=== PATIENT | female | born 1945 | race Caucasian/White ===

== ENCOUNTER 2018-11-04 15:28 | Emergency (ER) | payer OTHER, SELFPAY ==
[2018-11-04] VITALS (7 sets, daily range): BP systolic 129–150; BP diastolic 54–65; PULSE 48–58; RESP 13–18; TEMP 36.9–37; O2SAT 92–96; BMI 36.3
--- NOTE | 2018-11-04 16:02 | DI.RAD.S_ITS ---
PROCEDURE: XR CHEST 1V INDICATIONS: chest pain TECHNIQUE: One view of the chest was acquired. COMPARISON: None. FINDINGS: Surgical changes and devices: None. Lungs and pleura: An incomplete inspiratory result is noted, causing a crowded appearance to the lung markings. No focal infiltrates are seen. No pneumothorax or significant pleural effusions are seen. Mediastinum: The cardiac contours are within normal limits. The aorta demonstrates calcification and tortuosity. Bones and chest wall: Age-appropriate bony degenerative changes are seen. No suspicious bony lesions. Overlying soft tissues appear unremarkable. IMPRESSION: Limited portable chest examination, without a significant cardiopulmonary abnormality identified. Dictated by: Kirk Gomez M.D. on 11/04/2018 at 15:30 Approved by: Kirk Gomez M.D. on 11/04/2018 at 15:32
[2018-11-04 16:48] LABS: Add Manual Diff / Slide Review NO; Basophils Absolute Auto 0 /uL (0-100); Basophils Percent Auto 0.8 % (0-2); Eosinophils Absolute Auto 300 /uL (0-450); Eosinophils Percent Auto 4.9 % (2-4); Hematocrit 40.8 % (36-46); Hemoglobin 13.2 g/dL (12.0-16.0); Lymphocytes Absolute Auto 2100 /uL (1100-4500); Mean Corpuscular HGB Conc 32.4 % (30-36); Mean Corpuscular Hemoglobin 30.4 PG (26-34); Monocytes Absolute Auto 600 /uL (0-900); Monocytes Percent Auto 9.9 % (3-14); Neutrophils Absolute Auto 2700 /uL (1500-7000); Neutrophils Percent Auto 47.4 % (50-75); Platelet Count 258 X10^3/uL (150-400); Red Blood Cell Count 4.34 X10^6/uL (4.0-5.2); Red Cell Distribution Width 14.1 % (11.6-14.8); White Blood Cell Count 5.7 X10^3/uL (4.5-11.0)
[2018-11-04 17:04] LABS: Alanine Aminotransferase 25 IU/L (9-52); Albumin 4.3 g/dL (3.5-5.0); Albumin Globulin Ratio 1.3 (1.0-2.8); Alkaline Phosphatase 66 U/L (38-126); Aspartate Aminotransferase 27 IU/L (14-36); Bilirubin Total 0.3 mg/dL (0.2-1.3); Blood Urea Nitrogen 12 mg/dL (7-17); Calcium 9.2 mg/dL (8.4-10.2); Carbon Dioxide 30 mmol/L (22-32); Chloride 101 mmol/L (98-107); Creatine Kinase 76 U/L (30-135); Estimated Glomerular Filt Rate > 60.0 mL/min (>60); Globulin 3.2 g/dL (1.7-4.1); Glucose 91 mg/dL (80-110); HEMOLYSIS < 15 (0-50); Lipase 167 U/L (23-300); Potassium 3.5 mmol/L (3.4-5.1); Sodium 140 mmol/L (137-145); Total Protein 7.5 g/dL (6.3-8.2)
[2018-11-04 17:15] LABS: Troponin I < 0.012 ng/mL (0.01-0.034)
[2018-11-04 17:32] LABS: INR 0.9 (0.9-1.3); Prothrombin Time 10.6 SECONDS (10.1-12.7)
[2018-11-04 17:35] LABS: PTT Partial Thromboplastin Tim 30 SECONDS (26.4-36.2)
--- NOTE | 2018-11-04 18:02 | ED.GENADULT ---
HPI - General Adult General Chief complaint: Hypertension Stated complaint: high blood pressure, gets dizzy standing Time Seen by Provider: 11/04/18 18:02 Source: patient Mode of arrival: ambulatory Limitations: no limitations History of Present Illness HPI narrative: Patient is a 73-year-old female who is here for evaluation of multiple complaints. She stated that several weeks ago on Tuesday she had a sudden onset of not feeling very well. She states that she started taking her blood pressure at that time and realized that it was elevated. She saw her primary doctor who started her on amlodipine. This is in addition to metoprolol which she was taken at night and also an ARB and also hydrochlorothiazide. She stated that the amlodipine was starting to make her feet swell so she stopped taking it yesterday. Yesterday she also started taking 25 mg of metoprolol in the morning as well as at night. This is under the direction of her primary provider. She states that today the unsteadiness and vertigo sensation that she has been having for several weeks now was made worse. She states she took her blood pressure at home and it was ?low? she denies any other associated symptoms. She knows that her heart rate is normally low. She states she has been diagnosed with ?bradycardia ? Related Data Previous Rx's Medication Instructions Recorded meclizine 25 mg PO BID-TID PRN #10 tab 11/04/18 Allergies Allergy/AdvReac Type Severity Reaction Status Date / Time No Known Drug Allergies Allergy Verified 11/04/18 15:44 Review of Systems Constitutional Denies fever(s) and Denies headache(s) ENT Ears, Nose, Mouth, and Throat: Reports vertigo, Reports dizziness, Denies headache(s) and Reports disequilibrium Cardiovascular Denies chest pain, Denies chest pain at rest, Reports edema (Lower extremities but has been improving), Denies palpitations and Denies dyspnea Respiratory Denies dyspnea Gastrointestinal Gastrointestinal: Denies abdominal pain, Denies nausea and Denies vomiting Musculoskeletal Denies myalgias, Denies arthralgias and Denies tingling Integumentary/Breasts Denies rash Neurologic Denies behavioral changes, Denies confusion, Reports vertigo, Reports dizziness, Denies headache(s), Denies memory loss, Denies tingling and Reports disequilibrium Psychiatric Denies behavioral changes, Denies confusion and Denies memory loss Endocrine Denies palpitations Hematologic/Lymphatic Denies easy bleeding and Denies easy bruising [facility] Medical History Bradycardia (Acute) Hypertension (Acute) Surgical History No pertinent past surgical history (Acute) Social History Smoking Status: Never smoker Social History Smoking Status: Never smoker Exam Initial Vital Signs Initial Vital Signs: Vital Signs Temperature 98.6 F 11/04/18 15:44 Pulse Rate 58 L 11/04/18 15:44 Respiratory Rate 16 11/04/18 15:44 Blood Pressure 143/64 H 11/04/18 15:44 Pulse Oximetry 95 11/04/18 15:44 Const General: cooperative, healthy appearing, comfortable, well developed, well groomed and No acute distress Orientation: alert, awake and oriented x3 HENMT Head: normal to inspection and normocephalic Resp Effort & Inspection: normal respiratory effort Auscultation: clear to auscultation bilaterally Cardio Rate: bradycardic Rhythm: regular rhythm Pulses: radial pulses present GI Inspection: non-distended Palpation: soft, No firm and No tender Skin Lesions: no lesions Rashes: no rashes Neuro General: alert, awake and oriented x3 Cognition: normal cognition Speech: speech normal Motor: muscle tone normal throughout Sensory Exam: no sensory deficits noted Extrem General: normal to inspection and capillary refill normal Psych Appearance: grossly normal and well kempt Affect: normal affect Scores GCS [place] coma scale eye opening: Spontaneous [place] coma scale verbal response: Orientated [place] coma scale motor response: Obey commands [place] coma scale total score: 15 Course Orders Ordered: ED Orders 11/04/18 16:40 Complete Blood Count AUTO DIFF Stat Comprehensive Metabolic Panel Stat Lipase Stat Partial Thromboplastin Time Stat Prothrombin Time INR Stat Troponin & CK Cardiac Panel Stat Discontinued Medications Sodium Chloride (Normal Saline 0.9%) 1,000 mls @ 1,000 mls/hr IV BOLUS ONE Stop: 11/04/18 20:08 Last Infusion: 11/04/18 20:36 Dose: 0 mls/hr Admin: 11/04/18 19:19 Dose: 1,000 mls/hr Meclizine HCl (Antivert) 25 mg PO NOW ONE Stop: 11/04/18 19:10 Last Admin: 11/04/18 19:15 Dose: 25 mg Vital Signs - 8 hr 11/04/18 18:30 11/04/18 19:30 11/04/18 20:30 Temperature Pulse Rate 55 L 51 L 52 L Respiratory Rate 13 17 15 Blood Pressure Blood Pressure [Left Arm] 129/65 133/54 L 150/58 H Pulse Oximetry 95 95 96 11/04/18 21:00 Temperature 98.4 F Pulse Rate 54 L Respiratory Rate 18 Blood Pressure 138/59 L Blood Pressure [Left Arm] Pulse Oximetry 96 Medical Decision Making Lab Data Lab results reviewed: Yes I reviewed the patient's lab results. Result diagrams: 11/04/18 16:40 11/04/18 16:40 Lab Results 11/04/18 11/04/18 11/04/18 Range/Units 16:40 16:40 16:40 WBC 5.7 (4.5-11.0) X10^3/uL RBC 4.34 (4.0-5.2) X10^6/uL Hgb 13.2 (12.0-16.0) g/dL Hct 40.8 (36-46) % MCV 94.0 (80-100) fL MCH 30.4 (26-34) PG MCHC 32.4 (30-36) % RDW 14.1 (11.6-14.8) % Plt Count 258 (150-400) X10^3/uL Neut % (Auto) 47.4 L (50-75) % Lymph % (Auto) 37.0 (25-40) % Meagher % (Auto) 9.9 (3-14) % Eos % (Auto) 4.9 H (2-4) % Baso % (Auto) 0.8 (0-2) % Neut # (Auto) 2700 (9847-4776) /uL Lymph # (Auto) 2100 (2476-2385) /uL Meagher # (Auto) 600 (0-900) /uL Eos # (Auto) 300 (0-450) /uL Baso # (Auto) 0 (0-100) /uL PT 10.6 (10.1-12.7) SECONDS INR 0.9 (0.9-1.3) APTT 30 (26.4-36.2) SECONDS Sodium 140 (137-145) mmol/L Potassium 3.5 (3.4-5.1) mmol/L Chloride 101 (98-107) mmol/L Carbon Dioxide 30 (22-32) mmol/L BUN 12 (7-17) mg/dL Creatinine 0.60 (0.52-1.04) mg/dL Estimated GFR > 60.0 (>60) mL/min BUN/Creatinine Ratio 20.0 (6-22) Glucose 91 (80-110) mg/dL Calcium 9.2 (8.4-10.2) mg/dL Total Bilirubin 0.3 (0.2-1.3) mg/dL AST 27 (14-36) IU/L ALT 25 (9-52) IU/L Alkaline Phosphatase 66 (38-126) U/L Total Creatine Kinase 76 (30-135) U/L CK-MB (CK-2) TNP CK-MB (CK-2) Rel Index TNP Troponin I < 0.012 (0.01-0.034) ng/mL Total Protein 7.5 (6.3-8.2) g/dL Albumin 4.3 (3.5-5.0) g/dL Globulin 3.2 (1.7-4.1) g/dL Albumin/Globulin Ratio 1.3 (1.0-2.8) Lipase 167 (23-300) U/L Imaging Data Chest x-ray: Radiologist's impression: [place] [address] XRay Report Signed Patient: Brianna Carballo#: [id number] : 1945cct:[id number] Age/Sex: 73 / FDate of Service: 11/04/18 Loc: ED Accession Number: [id number] Procedure: XR chest 1V Ordering Provider: Alanna Gallardo D.O. PROCEDURE: XR CHEST 1V INDICATIONS: chest pain TECHNIQUE: One view of the chest was acquired. COMPARISON: None. FINDINGS: Surgical changes and devices: None. Lungs and pleura: An incomplete inspiratory result is noted, causing a crowded appearance to the lung markings. No focal infiltrates are seen. No pneumothorax or significant pleural effusions are seen. Mediastinum: The cardiac contours are within normal limits. The aorta demonstrates calcification and tortuosity. Bones and chest wall: Age-appropriate bony degenerative changes are seen. No suspicious bony lesions. Overlying soft tissues appear unremarkable. IMPRESSION: Limited portable chest examination, without a significant cardiopulmonary abnormality identified. Dictated by: Kirk Gomez M.D. on 11/04/2018 at 15:30 Approved by: Kirk Gomez M.D. on 11/04/2018 at 15:32 ECG Data Attestation: I personally reviewed and interpreted this ECG as follows: Prior ECG tracings: not available for review Interpretation: Sinus bradycardia Ventricular rate of 51 Left axis deviation LVH Normal QRS Nonspecific ST T wave changes MDM Narrative Medical decision making narrative: I do suspect that most of the patient's symptoms are related to a hypotension issue most likely related to increasing her metoprolol in the setting of already being bradycardic. When we attempted to ambulate her in the in the emergency department she complained of quite a bit of vertigo. She was given meclizine and fluids. She was able to ambulate around the emergency department without problems after that. This seemed to make her feel much better. I have low suspicion for CVA, low suspicion for TIA, low suspicion for ACS given her history and physical exam. We did discuss blood pressure and how to take it at home with to be concerned about. She is going to check her blood pressure in the morning before taking her morning metoprolol dose. She is going to contact her primary doctor on Tuesday for a follow-up to talk about potentially switching this medicine. She was given strict return precautions. Her and her expressed understanding and agreement plan. Discharge Plan Departure Patient Disposition: Home Clinical Impression: Vertigo Hypertension Qualifiers: Hypertension type: unspecified Qualified Code(s): I10 - Essential (primary) hypertension Discharge Date/Time: 11/04/18 21:02 Interventions: ED Discharge Assessment Last Done: 11/04/18 21:00 Instructions: DI for High Blood Pressure, DI for Vertigo Activity Restrictions/Additional Instructions: I recommend that you take your blood pressure medication like we discussed. If you do take your morning dose of metoprolol take 1/2 of a tablet like we discussed. Continue year other medications. Contact your primary doctor on Tuesday. Return to the emergency department for any new or worsening symptoms Prescriptions: New meclizine 25 mg tablet 25 mg PO BID-TID PRN (Reason: motion sickness) Qty: 10 RF: 0 Referrals: Janneth Duval DO [Primary Care Provider] -
[2018-11-04] MEDS: MECLIZINE HCL 12.5 MG TABLET 25 MG PO (19:15)
[2018-11-04] MEDS: SODIUM CHLORIDE 0.9% 1,000 ML 1000 ML IV (19:19)
== END 2018-11-04 21:02 | disposition home or self-care (01) ==
PROVIDERS: Emergency Medicine; Emergency Provider Emergency Medicine; PCP Family Medicine
DX: R42 Dizziness and giddiness (principal); I10 Essential (primary) hypertension; R00.1 Bradycardia, unspecified
CPT/HCPCS: 36591; 71045; 80053; 82550; 83690; 84484; 85025; 85610; 85730; 93005; 93010; 96360; 99283; 99285

== ENCOUNTER 2024-05-09 10:55 | Emergency (ER) | payer OTHER, SELFPAY ==
[2024-05-09] VITALS (13 sets, daily range): BP systolic 139–191; BP diastolic 65–103; PULSE 55–82; RESP 12–24; TEMP 36.4; O2SAT 93–97; BMI 31.8
--- NOTE | 2024-05-09 11:18 | ED_ITS ---
HPI - Dizziness General Chief Complaint: Dizziness Stated Complaint: Dizzy, Low blood pressure Time Seen by Provider: 05/09/24 11:06 History of Present Illness HPI Narrative: Patient here with . Complains of dizziness and feeling shaky. No chest pain palpitations or headache. No slurred speech or facial droop. No numbness or tingling weakness to the limbs. Patient does have history of high blood pressure. She saw Cardiology Dr. Dawkins, yesterday [facility] for blood pressure medication changes because last week her blood pressure was decreasing. Usually her blood pressure systolics 170 but it got down to 120-140. Her development and planning engineer took her off of metoprolol yesterday Related Data Previous Rx's Medication Instructions Recorded meclizine 25 mg tablet 25 mg PO BID-TID PRN motion 11/04/18 sickness #10 tabs Allergies Allergy/AdvReac Type Severity Reaction Status Date / Time No Known Drug Allergies Allergy Verified 11/04/18 15:44 Review of Systems Review of Systems Narrative: GENERAL: Negative chills, fatigue, malaise, fever, sweats. HEENT: Negative sinus pain, ear pain, sore throat RESPIRATORY: Negative dyspnea, cough CARDIOVASCULAR: Negative chest pain, palpitations GASTROINTESTINAL: Negative nausea, vomiting, abdominal pain : Negative dysuria, frequency, hematuria MUSCULOSKELETAL: Negative muscle or bony pain SKIN: Negative rash, skin lesions NEUROLOGIC: Positive dizziness/tremors, negative weakness, numbness ROS Unobtainable: All systems reviewed & are unremarkable except as noted in HPI and below Patient History Medical History Hypertension Bradycardia Surgical History No pertinent past surgical history Social History Smoking Status: Never smoker Smoking Status: Never smoker alcohol intake frequency: holidays/special occasions only Substance Use Type: does not use Exam Narrative Exam Narrative: GENERAL: in no distress, not toxic not dyspneic HEAD: Normocephalic. EYES: Pupils equal round ENT: Mucous membranes moist. NECK: Trachea midline. CARDIOVASCULAR: Regular rate and rhythm RESPIRATORY: Clear to auscultation. Breath sounds equal bilaterally. No wheezes, rales, or rhonchi. GASTROINTESTINAL: Abdomen soft, non-tender EXTREMITIES: No gross deformities. BACK: No flank tenderness. NEURO: AOx4. 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 Negative pronator drift. Fast exam is negative SKIN: Warm and dry PSYCH: Not anxious, is cooperative Initial Vital Signs Initial Vital Signs: Vital Signs Blood Pressure 191/86 H 05/09/24 11:11 Pulse Oximetry 93 05/09/24 11:11 Oxygen Delivery Method Room Air 05/09/24 11:11 Course Orders Ordered: Discontinued Medications Sodium Chloride (Normal Saline 0.9%) 500 mls @ 1,000 mls/hr IV BOLUS ONE Stop: 05/09/24 13:04 Last Infusion: 05/09/24 13:48 Dose: Infused Documented By: Admin: 05/09/24 12:41 Dose: 1,000 mls/hr Documented By: DINESH Vital Signs Vital signs: Vital Signs - 8 hr 05/09/24 11:11 05/09/24 11:11 05/09/24 11:13 Temperature 97.5 F L Pulse Rate 82 Respiratory Rate 16 Blood Pressure 191/86 H 191/86 H Pulse Oximetry 93 96 Oxygen Delivery Method Room Air Room Air 05/09/24 11:30 05/09/24 11:52 05/09/24 11:52 Temperature Pulse Rate 65 60 Respiratory Rate 17 12 Blood Pressure 164/102 H Pulse Oximetry 94 97 Oxygen Delivery Method 05/09/24 12:00 05/09/24 12:00 05/09/24 12:30 Temperature Pulse Rate 67 55 L Respiratory Rate 23 20 Blood Pressure 169/68 H Pulse Oximetry 96 96 Oxygen Delivery Method Room Air 05/09/24 12:31 05/09/24 12:31 05/09/24 13:00 Temperature Pulse Rate 59 L 58 L Respiratory Rate 24 20 Blood Pressure 173/67 H Pulse Oximetry 97 95 Oxygen Delivery Method Room Air 05/09/24 13:01 05/09/24 13:01 Temperature Pulse Rate 60 Respiratory Rate 19 Blood Pressure 145/65 H Pulse Oximetry 97 Oxygen Delivery Method MDM - Dizziness Lab Data 05/09/24 11:20 05/09/24 11:20 Labs: Lab Results 05/09/24 Range/Units 11:20 WBC 5.2 (4.5-11.0) X10^3/uL RBC 3.92 L (4.0-5.2) X10^6/uL Hgb 12.7 (12.0-16.0) g/dL Hct 37.3 (36-46) % MCV 95.3 (80-100) fL MCH 32.4 (26-34) PG MCHC 34.0 (30-36) % RDW 13.7 (11.6-14.8) % Plt Count 246 (150-400) X10^3/uL Neut % (Auto) 59.7 (50-75) % Lymph % (Auto) 26.7 (25-40) % [place] % (Auto) 9.0 (3-14) % Eos % (Auto) 3.3 (2-4) % Baso % (Auto) 1.3 (0-2) % Neut # (Auto) 3100 (5584-1024) /uL Lymph # (Auto) 1400 (6792-2019) /uL [place] # (Auto) 500 (0-900) /uL Eos # (Auto) 200 (0-450) /uL Baso # (Auto) 100 (0-100) /uL Sodium 139 (137-145) mmol/L Potassium 3.3 L (3.4-5.1) mmol/L Chloride 103 (98-107) mmol/L Carbon Dioxide 30 (22-32) mmol/L BUN 11 (7-17) mg/dL Creatinine 0.68 (0.52-1.04) mg/dL Estimated GFR > 60 (>60) mL/min BUN/Creatinine Ratio 16.2 (6-22) Glucose 101 (80-110) mg/dL Calcium 9.2 (8.4-10.2) mg/dL Total Bilirubin 0.5 (0.2-1.3) mg/dL AST 34 (14-36) IU/L ALT 21 (<35) IU/L Alkaline Phosphatase 69 (38-126) U/L Troponin I < 0.012 (0.01-0.034) ng/mL Total Protein 7.5 (6.3-8.2) g/dL Albumin 4.3 (3.5-5.0) g/dL Globulin 3.2 (1.7-4.1) g/dL Albumin/Globulin Ratio 1.3 (1.0-2.8) Urine Dip Bedside Urine Glucose Negative Bedside Urine Bilirubin - Negative Bedside Urine Ketone - Negative Urine Specific [place] 1.000 Bedside Urine Occult Blood - Negative Bedside Urine pH 6.5 Bedside Urine Protein - Negative Bedside Urine Urobilinogen - Negative Bedside Urine Nitrite - Negative Bedside Urine Leukocytes - Negative Esterase Imaging Data CTA - brain/neck: Radiologist's Impression: [address] [address] [address] Scan Report Signed Patient: Brianna Carballo MR#: [id number] : 1945 Acct:[id number] Age/Sex: 78 / F Date of Service: 05/09/24 Loc: ED Accession Number: [id number] Procedure: CT angio head and neck Ordering Provider: Milo Keating MD PROCEDURE: CT ANGIO HEAD AND NECK INDICATIONS: Dizzy/ataxia TECHNIQUE: After the administration of intravenous contrast, 1 mm thick sections acquired from the aortic arch through the [place]. 3-dimensional iadumnq-ycmfttvmi-yqgckqeoiq (MIP) and/or volume rendering reformats were acquired of the central intracranial vasculature and neck separately. For radiation dose reduction, the following was used: automated exposure control, adjustment of mA and/or kV according to patient size. COMPARISON: None. FINDINGS: Image quality: Diagnostic HEAD ANGIOGRAPHY: Anterior circulation: ICAs: Mild atherosclerotic calcifications ACAs: Patent MCAs: Patent AComm: No aneurysm Venous sinuses: Not well assessed on this study, no occlusive thrombus seen Posterior circulation: Dominance: Equal Vertebral arteries: Mild intracranial calcified atherosclerosis Basilar artery: Patent PComms: Dominant on the right 2-3 mm aneurysm arising from the left HOUSE BUILDER projecting superiorly (3/111) tattooer: Unremarkable NECK ANGIOGRAPHY: Aortic arch and subclavian arteries: Pjzi-nj-vqsynkom atherosclerosis More focal moderate narrowing seen in the left subclavian. CCAs: Bdhx-iz-gkuqbjze atherosclerosis ICA origins (by NASCET criteria): Pmqj-bi-ghwzkqch calcifications, with less than 50% narrowing ICAs: No stenosis, occlusion or aneurysm. ECAs: Origins are patent. Vertebral arteries: Moderate narrowing of the left vertebral artery origin. Soft tissues: No significant mass, aneurysm, or lymphadenopathy Lung apices: Emphysema Bones: No acute or suspicious abnormality. There are degenerative changes. Moderate ethmoid air cell mucosal thickening. IMPRESSION: No large vessel occlusion or high-grade stenosis. Qasd-ex-adkjswxo areas of atherosclerosis and narrowing as described above. 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 Consider MRI if there is high concern for infarct. Other nonvascular incidental findings above Any quantitative measurements of stenosis were performed using NASCET criteria. Dictated by: Aris Madrigal M.D. on 05/09/2024 at 12:13 Approved by: Aris Madrigal M.D. on 05/09/2024 at 12:20 CT scan - head: Radiologist's Impression: [address] [address] [address] Scan Report Signed Patient: Brianna Carabllo MR#: [id number] : 1945 Acct:[id number] Age/Sex: 78 / F Date of Service: 05/09/24 Loc: ED Accession Number: [id number] Procedure: CT head/brain wo con Ordering Provider: Milo Keating MD PROCEDURE: CT HEAD/BRAIN WO CON INDICATIONS: Dizzy/ataxia TECHNIQUE: Noncontrast 4.5 mm thick angled axial sections acquired from the foramen magnum to the vertex, with coronal and sagittal reformats. For radiation dose reduction, the following was used: automated exposure control, adjustment of mA and/or kV according to patient size. COMPARISON: None. FINDINGS: Image quality: Diagnostic CSF spaces: Basal cisterns are patent. Lateral ventricles are symmetric. Volume: Vascular calcifications. Periventricular white matter disease is commonly seen with chronic microangiopathy. Volume loss is present. These findings are sgml-av-qydmzjbe Brain: No gross loss of rosas-white differentiation. No acute intracranial hemorrhage. Craniofacial structures: Mild ethmoid air cell opacities. Empty sella. IMPRESSION: No acute intracranial pathology. If there is high concern for parenchymal pathology, consider further evaluation with MRI. Dictated by: Aris Madrigal M.D. on 05/09/2024 at 12:12 Approved by: Aris Madrigal M.D. on 05/09/2024 at 12:13 Chest x-ray: Radiologist's Impression: [address] [address] XRay Report Signed Patient: Brianna Carballo MR#: [id number] : 1945 Acct:[id number] Age/Sex: 78 / F Date of Service: 05/09/24 Loc: ED Accession Number: [id number] Procedure: XR chest 1V Ordering Provider: Milo Keating MD PROCEDURE: XR CHEST 1V INDICATIONS: Palpitation TECHNIQUE: One view of the chest was acquired. COMPARISON: [facility], CR, XR CHEST 1V, 11/04/2018, 16:13. FINDINGS: Surgical changes and devices: None. Lungs and pleura: Low lung volumes. No dense consolidation or pleural effusions. Mediastinum: Heart size is within normal limits, unchanged Bones and chest wall: Degenerative findings IMPRESSION: Limited single view radiograph with low lung volumes. No acute abnormality. Dictated by: Aris Madrigal M.D. on 05/09/2024 at 12:09 Approved by: Aris Madrigal M.D. on 05/09/2024 at 12:10 [facility] Narrative Medical decision making narrative: Patient here with . Complains of dizziness and feeling shaky. No chest pain palpitations or headache. No slurred speech or facial droop. No numbness or tingling weakness to the limbs. Patient does have history of high blood pressure. She saw Cardiology Dr. Dawkins, yesterday [facility] for blood pressure medication changes because last week her blood pressure was decreasing. Usually her blood pressure systolics 170 but it got down to 120-140. Her development and planning engineer took her off of metoprolol yesterday. After history and exam CBC CMP troponin EKG CT head CT angiogram head and neck chest x-ray monitoring and evaluation advisor [facility] Medical records reviewed: No recent visits for this complaint Differential considered: Includes but not limited to hypertensive urgency/emergency stroke rebound hypertension arrhythmia Lab Test results independently reviewed as above. Pertinent findings: WBC 5.2 hemoglobin 12.7 sodium 139 potassium 3.3 BUN 11 creatinine 0.68 GFR greater than 60 troponin less than 0.012 Independently reviewed EKG sinus bradycardia rate [address] elevation or depression Imaging studies independently reviewed: Chest x-ray CT head CT angiogram head and neck Consultations: 1:35 p.m.. Spoke with [facility] Neurosurgery Dr. Atwood, she has reviewed CT angiogram, at this time not convincing to be aneurysm on imaging however patient to follow up with primary care for repeat CT angiogram 3-6 months for comparison. 2:45 p.m.. Spoke with patient's cardiology group, Dr Arellano, he agrees that patient should be back on metoprolol. She should slowly wean off of it. It recommends 1 or 2 tabs at night instead of 3. Patient may keep her other medications as prescribed but do not start the spironolactone Treatments: Normal saline Re-evaluations: 12:30 p.m.. Updated patient results. Awaiting for call back for [facility] for Neurosurgery for incidental finding aneurysm on CT scan, 173/67, blood pressure is improving without intervention. 1:45 p.m.. Updated patient and my discussion with Neurosurgery. Blood pressure has improved without intervention. We are waiting call back from her cardiology service/team for blood pressure medication advice. 2:50 p.m.. Updated patient may discussion with her cardiology group. They agree with treatment plan. They do agree likely she was taken off her metoprolol to quickly. Return precautions reviewed. They desire discharge home. Discussion: Appropriate for discharge home. CT angiogram findings were likely incidental. It was reviewed by Neurosurgery. Patient's symptoms likely rebound hypertension from sudden removal metoprolol yesterday. Diagnosis: Hypertensive urgency Discharge Plan Departure Patient Disposition: Home Clinical Impression: Hypertensive urgency Activity Restrictions/Additional Instructions: Your exam and laboratory studies and imaging studies are reassuring. Please see your family doctor for re-evaluation/ordering CT angiogram of head and neck in 3 -6 months for comparison for images today. We did speak with your cardiology group, please take the metoprolol 2 tabs at night. You may take and continue other medications. Do not start the new blood pressure medication. Call your cardiology office in the morning to inform of any improvement or changes from today. Return if worse if any questions or concerns Prescriptions: No Action meclizine 25 mg tablet 25 mg PO BID-TID PRN (Reason: motion sickness) Qty: 10 0RF Referrals: Monica Khan ARNP [Primary Care Provider] - Stand Alone Forms: Patient Portal/API/Survey
--- NOTE | 2024-05-09 11:30 | EKG_ITS ---
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
[2024-05-09 11:32] LABS: Add Manual Diff / Slide Review NO; Basophils Absolute Auto 100 /uL (0-100); Basophils Percent Auto 1.3 % (0-2); Eosinophils Absolute Auto 200 /uL (0-450); Eosinophils Percent Auto 3.3 % (2-4); Hematocrit 37.3 % (36-46); Hemoglobin 12.7 g/dL (12.0-16.0); Lymphocytes Absolute Auto 1400 /uL (1100-4500); Lymphocytes Percent Auto 26.7 % (25-40); Mean Corpuscular Hemoglobin 32.4 PG (26-34); Mean Corpuscular Volume 95.3 fL (80-100); Monocytes Absolute Auto 500 /uL (0-900); Neutrophils Absolute Auto 3100 /uL (1500-7000); Neutrophils Percent Auto 59.7 % (50-75); Platelet Count 246 X10^3/uL (150-400); Red Blood Cell Count 3.92 X10^6/uL (4.0-5.2); Red Cell Distribution Width 13.7 % (11.6-14.8); White Blood Cell Count 5.2 X10^3/uL (4.5-11.0)
[2024-05-09 11:46] LABS: Alanine Aminotransferase 21 IU/L (<35); Albumin 4.3 g/dL (3.5-5.0); Albumin Globulin Ratio 1.3 (1.0-2.8); Alkaline Phosphatase 69 U/L (38-126); Aspartate Aminotransferase 34 IU/L (14-36); BUN Creatinine Ratio 16.2 (6-22); Bilirubin Total 0.5 mg/dL (0.2-1.3); Blood Urea Nitrogen 11 mg/dL (7-17); Calcium 9.2 mg/dL (8.4-10.2); Carbon Dioxide 30 mmol/L (22-32); Chloride 103 mmol/L (98-107); Estimated Glomerular Filt Rate > 60 mL/min (>60); Globulin 3.2 g/dL (1.7-4.1); Glucose 101 mg/dL (80-110); HEMOLYSIS 36 (0-50); Potassium 3.3 mmol/L (3.4-5.1); Sodium 139 mmol/L (137-145); Total Protein 7.5 g/dL (6.3-8.2)
[2024-05-09 11:56] LABS: Troponin I < 0.012 ng/mL (0.01-0.034)
[2024-05-09] MEDS: SODIUM CHLORIDE 0.9% 500 ML 1000 ML IV (12:41)
== END 2024-05-09 14:57 | disposition home or self-care (01) ==
PROVIDERS: Emergency Provider Emergency Medicine; PCP Nurse Practitioner Family
DX: I16.0 Hypertensive urgency (principal); R00.2 Palpitations; R25.1 Tremor, unspecified; R00.1 Bradycardia, unspecified
CPT/HCPCS: 36415; 70450; 70496; 70498; 71045; 80053; 81003; 84484; 85025; 93005; 93010; 96360; 99284; 99285; Q9967

== ENCOUNTER → 2024-08-03 13:17 | Outpatient (CLI) | payer OTHER, SELFPAY ==
--- NOTE | 2024-08-03 13:20 | DI.US.S_ITS ---
PROCEDURE: US RENAL DOPPLER INDICATIONS: RESISTANT HYPERTENSION TECHNIQUE: Real time scanning was performed of both kidneys, followed by Color and pulsed Doppler interrogation of the renal vessels. COMPARISON: None. FINDINGS: Aortic peak systolic velocity: 75 cm/s. Right side: Rivera-scale imaging: Kidney is 12.0 cm long. No hydronephrosis. No nephrolithiasis. Renal cortex is normal in echogenicity. No suspicious solid renal masses. Proximal renal artery peak systolic velocity: Nonvisualized Mid renal artery peak systolic velocity: Nonvisualized Distal renal artery peak systolic velocity: 148 cm/s. Renal vein: Patent, without thrombus. Peak renal/aortic ratio (RAR): 2.0 Left side: Rivera-scale imaging: Kidney is 11.6 cm long. No hydronephrosis. No nephrolithiasis. Renal cortex is normal in echogenicity. No suspicious solid renal masses. Proximal renal artery peak systolic velocity: 266 cm/s. Mid-renal artery peak systolic velocity: 281 cm/s. Distal renal artery peak systolic velocity: 87 cm/s. Renal vein: Patent, without thrombus. Peak renal/aortic ratio (RAR): 3.7 Incidental bilateral renal cysts measure up to 2.5 cm IMPRESSION: Peak systolic velocity and ratio on the left consistent with left-sided renal artery stenosis. Consider CT angiogram confirmation. Approved by: Jagdeep Mejia M.D. on 08/03/2024 at 18:02
[2024-08-03 15:49] LABS: Alanine Aminotransferase 23 IU/L (<35); Albumin 4.4 g/dL (3.5-5.0); Albumin Globulin Ratio 1.7 (1.0-2.8); Alkaline Phosphatase 52 U/L (38-126); Aspartate Aminotransferase 30 IU/L (14-36); Bilirubin Total 0.3 mg/dL (0.2-1.3); Blood Urea Nitrogen 19 mg/dL (7-17); Calcium 9.9 mg/dL (8.4-10.2); Carbon Dioxide 35 mmol/L (22-32); Chloride 102 mmol/L (98-107); Estimated Glomerular Filt Rate > 60 mL/min (>60); Globulin 2.6 g/dL (1.7-4.1); Glucose 76 mg/dL (80-110); HEMOLYSIS < 15 (0-50); Potassium 3.3 mmol/L (3.4-5.1); Sodium 142 mmol/L (137-145)
== END ==
LOC: US 13:18
PROVIDERS: PCP Nurse Practitioner Family; Referring Provider Internal Medicine Cardiovascular Disease; Visit Provider Internal Medicine Cardiovascular Disease
DX: I1A.0 Resistant hypertension (principal); N28.1 Cyst of kidney, acquired
CPT/HCPCS: 36415; 80053; 93975